=== PATIENT | female | born 1995 | race Caucasian/White ===

== ENCOUNTER → 2020-04-04 | Outpatient (REF) | payer BC | LOC: M WUC 15:50 | PROVIDERS: ATTEND Physician Assistant | DX: J02.9 Acute pharyngitis, unspecified (principal) ==

== ENCOUNTER → 2022-02-19 | Outpatient (CLI) | payer BC | LOC: M WHC 07:00 | PROVIDERS: ATTEND Specialist | DX: Z34.02 Encounter for supervision of normal first pregnancy, second trimester (principal); Z3A.18 18 weeks gestation of pregnancy ==

== ENCOUNTER → 2022-03-05 | Outpatient (CLI) | payer BC ==
[2022-03-05 13:51] LABS: HEMATOCRIT 34.4 % (36.0-47.0); HEMOGLOBIN 11.4 g/dl (12.0-15.5); MEAN CORPUSCULAR HEMOGLOBIN 29.7 pg (27.0-33.0); MEAN CORPUSCULAR HGB CONC 33.1 g/dl (32.0-36.5); MEAN CORPUSCULAR VOLUME 89.6 fl (80.0-96.0); PLATELET COUNT, AUTOMATED 225 10^3/uL (150-450); RED BLOOD COUNT 3.84 10^6/uL (4.00-5.40); WHITE BLOOD COUNT 11.3 10^3/uL (4.0-10.0)
[2022-03-05 14:33] LABS: HEPATITIS C VIRUS ABY INDEX < 0.0 INDEX (<0.8); HIV 1&2 SCREEN CENTAUR NEGATIVE (NEGATIVE)
[2022-03-05 14:59] LABS: GC DNA AMPLIFICATION NEGATIVE (NEGATIVE)
== END ==
LOC: M PLALAB 11:44
PROVIDERS: ATTEND Advanced Practice Midwife
DX: O99.211 Obesity complicating pregnancy, first trimester (principal)

== ENCOUNTER → 2022-04-10 | Outpatient (CLI) | payer BC | LOC: M WHC 10:15 | PROVIDERS: ATTEND Advanced Practice Midwife | DX: O99.212 Obesity complicating pregnancy, second trimester (principal); Z3A.25 25 weeks gestation of pregnancy; E66.9 Obesity, unspecified ==

== ENCOUNTER → 2022-06-05 | Outpatient (CLI) | payer BC ==
[2022-06-05 14:30] LABS: HEMATOCRIT 35.9 % (36.0-47.0); HEMOGLOBIN 11.6 g/dl (12.0-15.5); MEAN CORPUSCULAR HGB CONC 32.3 g/dl (32.0-36.5); MEAN CORPUSCULAR VOLUME 89.8 fl (80.0-96.0); PLATELET COUNT, AUTOMATED 231 10^3/uL (150-450); WHITE BLOOD COUNT 11.7 10^3/uL (4.0-10.0)
[2022-06-05 15:47] LABS: GC DNA AMPLIFICATION NEGATIVE (NEGATIVE)
== END ==
LOC: M PLALAB 10:51
PROVIDERS: ATTEND Specialist
DX: O99.212 Obesity complicating pregnancy, second trimester (principal); O99.332 Smoking (tobacco) complicating pregnancy, second trimester; E66.01 Morbid (severe) obesity due to excess calories; Z3A.24 24 weeks gestation of pregnancy; F17.210 Nicotine dependence, cigarettes, uncomplicated

== ENCOUNTER → 2022-06-18 | Outpatient (CLI) | payer BC | LOC: M WHC 08:21 | PROVIDERS: ATTEND Advanced Practice Midwife | DX: O26.843 Uterine size-date discrepancy, third trimester (principal); Z3A.35 35 weeks gestation of pregnancy ==

== ENCOUNTER → 2022-06-25 | Outpatient (REF) | payer BC | LOC: M PLALAB 16:49 | PROVIDERS: ATTEND Advanced Practice Midwife | DX: O22.03 Varicose veins of lower extremity in pregnancy, third trimester (principal); Z3A.00 Weeks of gestation of pregnancy not specified ==

== ENCOUNTER 2022-07-25 15:20 | Inpatient (IN) | payer BC ==
[~2022-07-25] VITALS: Ht 175.3 cm; Wt 163.5 kg
[2022-07-25] MEDS ORDERED: HOME MED LIST COMPLETE! XX SCH (15:50)
[2022-07-25] MEDS ORDERED: PRENTAB9 PO (15:50)
[2022-07-25] MEDS ORDERED: VALT500T PO (15:50)
[2022-07-25 16:07] VITALS: BP 142/81
[2022-07-25] MEDS ORDERED: LIDOCAINE 1% MDV 20ML VIAL INFIL PRN (16:30)
[2022-07-25] MEDS ORDERED: TRANEXAMIC ACID INJection 1,000 MG in NS 100 ML IV PRN (16:30)
[2022-07-25] MEDS ORDERED: CARBOPROST TROMETHAMINE 250 MCG/ML AMP IM PRN (16:30)
[2022-07-25] MEDS ORDERED: OXYTOCIN DRIP 30 UNITS in IV 1 EA IV PRN (16:30)
[2022-07-25 17:07] LABS: HEMATOCRIT 36.9 % (36.0-47.0); HEMOGLOBIN 12.1 g/dl (12.0-15.5); MEAN CORPUSCULAR HEMOGLOBIN 28.5 pg (27.0-33.0); MEAN CORPUSCULAR HGB CONC 32.8 g/dl (32.0-36.5); PLATELET COUNT, AUTOMATED 232 10^3/uL (150-450); RED BLOOD COUNT 4.24 10^6/uL (4.00-5.40); WHITE BLOOD COUNT 11.5 10^3/uL (4.0-10.0)
[2022-07-25 17:14] LABS: TOTAL PROTEIN,RANDOM URINE 23.5 MG/DL (0.0-14.0)
[2022-07-25 17:16] LABS: URIC ACID 5.3 MG/DL (3.1-7.8)
[2022-07-25 17:19] LABS: ALT/SGPT 16 U/L (7.0-40); AST/SGOT 14 U/L (<34); BILIRUBIN,TOTAL 0.2 MG/DL (0.3-1.2); CREATININE FOR GFR 0.65 MG/DL (0.55-1.30); CREATININE,RANDOM URINE 158.8 MG/DL; GLOMERULAR FILTRATION RATE > 60.0 (>60); LDH LACTATE DEHYDROGENASE 159 U/L (120-246)
[2022-07-25 17:21] VITALS: BP 134/79
[2022-07-25] MEDS: miSOPROStol 50MCG 1/2 TABLET PO SCH ×2 (17:21→21:43)
[2022-07-25] MEDS ORDERED: PENICILLIN G POTASSIUM 5 MU IV 5 MU in D5W MINI-BAG PLUS 100 ML IV STA (18:20)
[2022-07-25 18:28] VITALS: BP 153/91
[2022-07-26] VITALS (26 sets, daily range): BP systolic 122–166; BP diastolic 59–92
[2022-07-26] MEDS: miSOPROStol 50MCG 1/2 TABLET PO SCH ×2 (00:30→04:30)
[2022-07-26] MEDS ORDERED: EPIDURAL/PCA KEYS XX PRN (02:15)
[2022-07-26] MEDS: FENTANYL/ROPIVACAINE/NACL BAG 100 ML EPIDURAL SCH ×2 (02:15→09:47)
[2022-07-26] MEDS ORDERED: diphenhydrAMINE 50MG/ML VIAL IV PRN (02:15)
[2022-07-26] MEDS ORDERED: ePHEDrine SULFATE 25 MG/5 ML(5MG/ML) SYRINGE IVP PRN (02:15)
[2022-07-26] MEDS ORDERED: ONDANSETRON 4MG 2ML VIAL IV PRN (02:15)
[2022-07-26] MEDS ORDERED: LR 500 ML IV PRN (02:15)
[2022-07-26] MEDS ORDERED: NALOXONE INJ 0.4MG/1ML VIAL IV PRN (02:15)
[2022-07-26] MEDS ORDERED: LR 1,000 ML IV SCH (03:45)
[2022-07-26] MEDS ORDERED: OXYTOCIN DRIP 30 UNITS in IV 1 EA IV SCH ×3 (03:45→12:10)
[2022-07-26] MEDS ORDERED: PEN G POT 3,000,000 UNIT/50 ML 3,000,000 UNIT in IV 1 EA IV SCH (06:30)
[2022-07-26] MEDS ORDERED: diphenhydrAMINE 50MG/ML VIAL IV ONE (07:40)
[2022-07-26 10:17] LABS: CORD GAS ABE A -6.5; CORD GAS ABE V -7.3; CORD GAS HCO3 A 23.1 MEQ/L; CORD GAS HCO3 V 20.7 MEQ/L; CORD GAS O2 SAT V 41.3 %; CORD GAS PCO2 A 63.8 mmHg; CORD GAS PCO2 V 51.1 mmHg; CORD GAS PH A 7.177 UNITS; CORD GAS PH V 7.226 UNITS; CORD GAS PO2 A 10.6 mmHg; CORD GAS PO2 V 31.2 mmHg; CORD GAS SBC V 17.3 MEQ/L; CORD GAS TCO2 A 25.1 MEQ/L; CORD GAS TCO2 V 22.3 MEQ/L
[2022-07-26] MEDS ORDERED: DOCUSATE SODIUM 100MG CAPSULE PO PRN (12:10)
[2022-07-26] MEDS ORDERED: RHOGAM 300MCG (1500IU) INJ IM SCH (12:10)
[2022-07-26] MEDS ORDERED: METHYLERGONOVINE MALEATE 0.2 MG TAB PO PRN (12:10)
[2022-07-26] MEDS: PRENATAL VITAMINS CHEWABLE TABLET PO SCH (13:38)
[2022-07-26] MEDS: IBUPROFEN 600MG TAB PO PRN (13:39)
[2022-07-26] MEDS: DIBUCAINE 1% OINTMENT 30GM TOP PRN (15:00)
[2022-07-26] MEDS: ACETAMINOPHEN 500 MG TAB PO PRN (19:24)
[2022-07-26] MEDS: NIFEdipine 30MG XL TAB PO SCH (20:30)
[2022-07-27 06:49] LABS: HEMATOCRIT 32.8 % (36.0-47.0); HEMOGLOBIN 10.6 g/dl (12.0-15.5); MEAN CORPUSCULAR HGB CONC 32.3 g/dl (32.0-36.5); MEAN CORPUSCULAR VOLUME 89.9 fl (80.0-96.0); PLATELET COUNT, AUTOMATED 198 10^3/uL (150-450); RED BLOOD COUNT 3.65 10^6/uL (4.00-5.40); WHITE BLOOD COUNT 11.3 10^3/uL (4.0-10.0)
[2022-07-27 07:16] LABS: URIC ACID 5.5 MG/DL (3.1-7.8)
[2022-07-27 07:17] LABS: LDH LACTATE DEHYDROGENASE 208 U/L (120-246)
[2022-07-27 07:19] LABS: ALT/SGPT 20 U/L (7.0-40); AST/SGOT 27 U/L (<34); BILIRUBIN,TOTAL 0.2 MG/DL (0.3-1.2); CREATININE FOR GFR 0.78 MG/DL (0.55-1.30); GLOMERULAR FILTRATION RATE > 60.0 (>60)
[2022-07-27 08:00] VITALS: BP 145/84
[2022-07-27] MEDS: PRENATAL VITAMINS CHEWABLE TABLET PO SCH (08:08)
[2022-07-27] MEDS: NIFEdipine 30MG XL TAB PO SCH (08:12)
[2022-07-27 08:14] VITALS: BP 133/68
[2022-07-27 10:00] VITALS: BP 145/70
[2022-07-27 14:00] VITALS: BP 137/64
[2022-07-27 18:00] VITALS: BP 146/67
[2022-07-27] MEDS: ACETAMINOPHEN 500 MG TAB PO PRN (18:54)
[2022-07-27 22:00] VITALS: BP 135/63
[2022-07-28 02:00] VITALS: BP 137/69
[2022-07-28 06:00] VITALS: BP 139/69
[2022-07-28] MEDS: PRENATAL VITAMINS CHEWABLE TABLET PO SCH (07:57)
[2022-07-28 08:01] VITALS: BP 137/66
[2022-07-28] MEDS: NIFEdipine 30MG XL TAB PO SCH (08:01)
[2022-07-28] MEDS: DIBUCAINE 1% OINTMENT 30GM TOP PRN (08:08)
[2022-07-28] MEDS: IBUPROFEN 600MG TAB PO PRN (08:09)
[2022-07-28] MEDS ORDERED: MEASLES,MUMPS,RUBELLA VACCINE INJ (MMR-II) SC.IMMUN ONE (09:00)
[2022-07-28 10:00] VITALS: BP 139/67
[2022-07-28] MEDS ORDERED: NIFE1TAB52 PO (12:29)
== END 2022-07-28 13:10 | disposition home or self-care (01) | DRG 560 ==
LOC: M LDI 15:20 → M OBS 07-26 13:45
PROVIDERS: ADMIT Advanced Practice Midwife; ATTEND Advanced Practice Midwife
PROC: 3E0P7VZ Introduction of Hormone into Female Reproductive, Via Natural or Artificial Opening (ICD-10-PCS; 2022-07-25)
PROC: 3E033VJ Introduction of Other Hormone into Peripheral Vein, Percutaneous Approach (ICD-10-PCS; 2022-07-25)
PROC: 10D07Z6 Extraction of Products of Conception, Vacuum, Via Natural or Artificial Opening (ICD-10-PCS; principal; 2022-07-26)
PROC: 10907ZC Drainage of Amniotic Fluid, Therapeutic from Products of Conception, Via Natural or Artificial Opening (ICD-10-PCS; 2022-07-26)
DX: O13.4 Gestational [pregnancy-induced] hypertension without significant proteinuria, complicating childbirth (principal); O48.0 Post-term pregnancy; Z37.0 Single live birth; Z3A.40 40 weeks gestation of pregnancy; O99.284 Endocrine, nutritional and metabolic diseases complicating childbirth; O69.1XX0 Labor and delivery complicated by cord around neck, with compression, not applicable or unspecified